=== PATIENT | male | born 1955 | race Caucasian/White ===

== ENCOUNTER → 2019-02-07 07:57 | Outpatient (CLI) | payer MEDICARE, SELFPAY ==
[2019-01-21 11:13] VITALS: BMI 34.5
[2019-02-07 08:39] VITALS: PULSE 104; PULSE 108; PULSE 110; PULSE 112; PULSE 115; PULSE 116; PULSE 70; PULSE 71; O2SAT 95; O2SAT 96; O2SAT 97; O2SAT 98
--- NOTE | 2019-02-08 08:18 | PCM.PSN.6M ---
PSN 6 Minute Walk Test - 6 Minute Walk Test 6 Minute Walk Test: 6 Minute Walk Test PSN:6-Minute Walk Test Start: 02/07/19 08:39 Freq: Status: Active Protocol: RESP.6MINW Document 02/07/19 08:39 SMB (Rec: 02/07/19 08:43 SMB [id number]) 6 Minute Walk Test Date Performed 02/07/19 Time Performed 08:26 Height 5 ft 9 in Weight: 122.47 kg Weight in Pounds 270.[address]: Andrea Valderrama Assistive device used: None Pre-test Oxygen Delivery Method Room Air Pulse Ox (%) 96 Pulse Rate (60-100 beats/min) 71 Dyspnea Jose Scale (0-10) 0 Exertion Jose Scale (6-20) 11 1st minute Oxygen Delivery Method Room Air Pulse Ox (%) 95 Pulse Rate (60-100 beats/min) 104 H 2nd minute Oxygen Delivery Method Room Air Pulse Ox (%) 95 Pulse Rate (60-100 beats/min) 108 H 3rd minute Oxygen Delivery Method Room Air Pulse Ox (%) 95 Pulse Rate (60-100 beats/min) 112 H 4th minute Oxygen Delivery Method Room Air Pulse Ox (%) 96 Pulse Rate (60-100 beats/min) 116 H 5th minute Oxygen Delivery Method Room Air Pulse Ox (%) 97 Pulse Rate (60-100 beats/min) 110 H 6th minute Oxygen Delivery Method Room Air Pulse Ox (%) 98 Pulse Rate (60-100 beats/min) 115 H Post-test Oxygen Delivery Method Room Air Pulse Ox (%) 97 Pulse Rate (60-100 beats/min) 70 Dyspnea Jose Scale (0-10) 0.5 Exertion Jose Scale (6-20) 13 Full Laps Walked 16 Partial Lap, Number of Tiles Walked 11 Total Distance Walked (ft) 955 - Interpretation Interpretation: The patient was able to Rosana 955 feet over the course of 6 minutes on room air with no assistive devices or breaks. The patient did not have any significant desaturation, but did have tachycardia as high as 116 bpm. These findings are consistent with deconditioning. - Recommendations Recommendations: No supplemental oxygen is indicated at this time.
== END ==
LOC: PSN 07:58
PROVIDERS: Referring Provider Internal Medicine Critical Care Medicine; Visit Provider Internal Medicine Critical Care Medicine
DX: R09.02 Hypoxemia (principal)
CPT/HCPCS: 94618

== ENCOUNTER → 2019-02-10 20:43 | Outpatient (CLI) | payer MEDICARE, SELFPAY ==
[2019-01-21 11:13] VITALS: BMI 34.5
== END ==
LOC: SL 20:43
PROVIDERS: Referring Provider Internal Medicine Critical Care Medicine; Visit Provider Internal Medicine Critical Care Medicine
DX: G47.33 Obstructive sleep apnea (adult) (pediatric) (principal)
CPT/HCPCS: 95810

== ENCOUNTER → 2019-03-06 20:24 | Outpatient (CLI) | payer MEDICARE, SELFPAY ==
[2019-01-21 11:13] VITALS: BMI 34.5
== END ==
PROVIDERS: Referring Provider Nurse Practitioner Acute Care; Visit Provider Nurse Practitioner Acute Care
DX: G47.33 Obstructive sleep apnea (adult) (pediatric) (principal)
CPT/HCPCS: 95811

== ENCOUNTER → 2019-03-24 13:34 | Outpatient (CLI) | payer MEDICARE, SELFPAY ==
[2019-01-21 11:13] VITALS: BMI 34.5
== END ==
PROVIDERS: Referring Provider Nurse Practitioner Acute Care; Visit Provider Nurse Practitioner Acute Care
DX: Z46.89 Encounter for fitting and adjustment of other specified devices (principal)

== ENCOUNTER 2019-08-24 18:30 | Emergency (ER) | payer MEDICARE, SELFPAY ==
[2019-04-30 15:04] VITALS: BMI 38.5
[2019-08-24 18:30] VITALS: BP 158/93; PULSE 163; RESP 16; TEMP 36.6; O2SAT 95; BMI 36.9
--- NOTE | 2019-08-24 20:03 | ED.DCSUM_ITS ---
History of Present Illness Chief Complaint: Wound Check Informant: Patient Narrative: Patient underwent left total knee replacement at the [facility] 2 days ago. Because the patient has chronic skin issues a wound VAC was placed over the area. Patient states he was doing very well yesterday and was discharged to home. Today they note that the wound VAC is not working. He has had nothing suctioned out of the wound and the sponge is not tense. He states it has never been working since they were discharged. Patient now has blood from underneath the dressing from the wound VAC. Whenever he stands he gets blood dripping. We believe that the sponges are saturated and with the wound VAC not working and is not being evacuated. Patient does state he is at increased pain today, but then notes that he is only been taking 1 tab of oxycodone every 12 hours when he is actually prescribed 1-2 tabs every 6 hours. - Past Medical History (1) TIA (transient ischemic attack) Status: Chronic (2) Cryptogenic stroke Status: Chronic Comment: L frontal and L parietal lobes (3) Hypertension Status: Chronic (4) Hypothyroid Status: Chronic (5) JOSÉ LUIS (obstructive sleep apnea) Status: Chronic Past Medical History - Allergies and Home Meds Allergies/Adverse Reactions: Allergies Penicillins Allergy (Verified 08/20/19 11:16) Anaphylaxis Primary Care Physician: [facility],[place] [Primary Care Provider] - Prior records reviewed: Yes Surgical History: noncontributory Lives: With Family Smoking Status: Current some day smoker - Family History Maternal Family History: Reports: No pertinent history Paternal Family History: Reports: No pertinent history Review of Systems General: Denies: Chills, Fever Eyes: Denies: Visual changes - bilaterally ENT: Denies: Bilateral ear pain Cardiovascular: Denies: Chest pain Respiratory: Denies: Dyspnea Gastrointestinal: Denies: Abdominal pain, Nausea, Vomiting, Diarrhea Genitourinary: Denies: Dysuria Musculoskeletal: Reports: Extremity Pain Skin: Denies: Rash Neurological: Denies: Headache Physical Exam Vital Signs/Narrative: Vital Signs Temp Pulse Resp BP Pulse Ox 08/24/19 18:30 97.8 F 163 H 16 158/93 H 95 Inital Vital Signs reviewed: Yes General: Well nourished, Well developed Head: Normocephalic ENT: Moist mucous membranes Neck: Supple Cardiovascular: Regular rate, Regular rhythm Respiratory: No distress, CTA bilaterally Abdomen: Soft, Nontender Extremities: - - Wound VAC in place over the left anterior knee. The sponge measures approximately 4 cm wide by at least a foot in length. The sponge is not pulled tense and there is no suction from the wound VAC. Neurological: Alert Psychological: Normal affect Diagnostic/Tx/Re-eval - Medical Decision Making When the power button on the wound VAC is pressed there is an alarm stating that it needs to be plugged in. Family states they were not provided with a plug for the VAC. There is an area where blood has seeped down underneath the dressing and will drain over the left anterior joaquin when the patient is upright. I was able to speak with the patient's orthopedic surgeon from the [place]. He asked the patient to follow-up in the Ortho general clinic at 945 tomorrow morning. They will replace the wound VAC and ensure it is working at that time. In the meantime we are to place ABD pads and wrap his leg with an Amadeo wrap. Patient is comfortable with this plan. ED Disposition - Plan for ED Patient: Disposition: Home or Assisted Living Diagnosis: Postoperative bleeding from incision Instructions: POST OP WOUND CHECK, Bleeding Referrals: [facility] [Primary Care Provider] - Additional Instructions: Follow-up with the ortho general clinic at 9:45 tomorrow morning. They will replace your wound vac and ensure it is working.
[2019-08-24 20:04] VITALS: PULSE 78
--- NOTE | 2019-08-24 21:36 | ED.RN ---
PATIENT AT NURSES STATION. RN ASKS IF PATIENT NEEDED ANY HELP. PATIENT REQUEST D/C PAPERS THAT ARE UP AND READY TO GO. RN CHECKS FOR ADDITIONAL ORDERS NOTHING, [facility] ANOTHER RN STOPS PATIENT AND INFORMS THEM THAT DR. JOHNSON WANTS HIS LEG TO BE WRAPPED TO HOLD OVER FOR APPOINTMENT TOMORROW. PATIENT STATES I HAVE BEEN HERE FOR 5 HOURS AND I WANT TO GO HOME. PATIENT PROCEEDS TO WALK OUT OF ER.
== END 2019-08-24 21:15 | disposition home or self-care (01) ==
PROVIDERS: Emergency Provider Emergency Medicine
DX: L76.22 Postprocedural hemorrhage of skin and subcutaneous tissue following other procedure (principal); I10 Essential (primary) hypertension; E03.9 Hypothyroidism, unspecified; G47.33 Obstructive sleep apnea (adult) (pediatric); F17.200 Nicotine dependence, unspecified, uncomplicated; Z88.0 Allergy status to penicillin; Z79.82 Long term (current) use of aspirin; Z79.899 Other long term (current) drug therapy; Z86.73 Personal history of transient ischemic attack (TIA), and cerebral infarction without residual deficits; Z96.652 Presence of left artificial knee joint
CPT/HCPCS: 99282

== ENCOUNTER 2021-02-04 07:54 | Day surgery (SDC) | payer OTHER, MEDICARE, SELFPAY ==
[2020-12-30 10:14] VITALS: BMI 36.9
[2021-02-04 08:20] VITALS: BP 152/85; PULSE 64; RESP 20; TEMP 36.8; O2SAT 99; BMI 38.9
[2021-02-04] MEDS: Lactated Ringers 1,000 ML 100 ML IV (08:20)
--- NOTE | 2021-02-04 08:46 | PCM.HP.BLA ---
History and Physical Date of Admission: 02/04/21 Intake Vital Signs 12/30/20 10:11 12/30/20 10:14 Height 5 ft 9 in Weight: 262 lb BMI 38.7 36.9 BP 141/103 H Blood Pressure Location Rt brachial Position Sitting Respiration 18 Intake Visit Reasons: CSCOPE Chief Complaint: c-scope [employer] Intern Required: No Is patient in pain?: No Allergies Penicillins Allergy (Verified 12/30/20 10:12) Anaphylaxis Medications amlodipine 5 mg PO DAILY 08/02/15 [History Confirmed 12/30/20] atenolol 50 mg PO DAILY 08/02/15 [History Confirmed 12/30/20] levothyroxine 150 mcg PO DAILY 08/02/15 [History Confirmed 12/30/20] aspirin 81 mg PO DAILY@0800 tab.chew 02/02/16 [Rx Confirmed 12/30/20] losartan 50 mg tablet 50 mg PO DAILY 12/30/20 [History Confirmed 12/30/20] potassium chloride 20 mEq tablet,extended release 20 meq PO TID tab 12/30/20 [History Confirmed 12/30/20] PFSH Medical History Acquired cardiac septal defect Aphasia Cryptogenic stroke Hypertension Hypokalemia Hypothyroid Ichthyosis Noncompliance with medications Obesity TIA (transient ischemic attack) Uncontrolled nonfamilial obstructive sleep apnea Surgical History Status post right knee replacement Social History Smoking Status: Current some day smoker Tobacco: How many years used: 15 how long ago did patient quit smokin, 2ppd second hand exposure: Yes HPI HPI HPI: ALIA PUCKETT, is a 65 M who presents to the office today for colonoscopy. The patient had his last colonoscopy in 2017. At that time the patient had a colon polyp and a poor prep and was recommended to repeat colonoscopy in 1 year. The patient never had that repeat colonoscopy. Patient denies any abdominal pain or blood in his stool. He has no family history of colon cancer. ROS General General: Yes weight change; No appetite, fatigue, colon cancer, breast cancer or weakness HEENT HEENT: No difficulty swallowing, eye injury, eye surgery, swollen glands or hoarseness Endo Endocrine: No thyroid disease, diabetes mellitus, thyroid cancer, Hair loss, heat intolerance or cold intolerance Skin Skin: No rash or changing moles Breast Breast: No left breast lump, right breast lump, nipple discharge, breast pain, abnormal mammogram, abnormal US or breast enlargement Musc Musculoskeletal: No back problems, arthritis, rheumatoid arthritis, gout or joint pain Cardio Cardiovascular: Yes high blood pressure; No murmur, pacemaker, heart disease, atrial fibrillation, heart attack, heart stent, palpitations, shortness of breat with exertion or chest pain Psych Psychiatric: No depression, anxiety or hearing voices Resp Respiratory: No shortness of breath, Yes sleep apnea, No cough, No COPD, No asthma, No emphysema and No wheezing Gastro Gastrointestinal: No abdominal pain, No nausea or vomiting, No diarrhea, No constipation, No blood in stool, No acid reflux, No hemorrhoids, No ulcers, No gallbladder problem and No black,tarry stools Beny Hematologic: No blood thinners, No blood disorders, No bleeding, No anemia and No blood clots Neuro Neurologic: No system reviewed and no additional complaints, except as documented, No as per HPI, No abnormal gait, No abnormal hearing, No abnormal movements, No abnormal speech, No behavioral changes, No burning sensations, No confusion, No convulsions, No disequilibrium, No dizziness, No localized weakness, No frequent falls, No headache(s), No lack of coordination, No loss of vision, No memory loss, No numbness, No other visual disturbances, No radicular pain, No restless legs, No sensory deficit, No syncope, No tingling, No tremor(s), No weakness and No other Exam Const General: cooperative Orientation: alert and oriented x3 HENMI Head: normal to inspection Neck Neck: normal visual inspection and full ROM Chest Chest palpation & inspection: normal inspection of the chest Resp Effort & Inspection: normal respiratory effort Auscultation: clear to auscultation bilaterally Cardio Rate: regular rate Rhythm: regular rhythm GI Inspection: non-distended Palpation: soft and nontender Skin General: no rashes or lesions noted Neuro General: patient alert and patient oriented x3 Extrem General: full ROM Psych Appearance: grossly normal Mental Status: mental status grossly normal Assessment and Plan Assessment and Plan (1) History of colon polyps: Status: Acute Orders: Orders: Colonoscopy Today Plan - Dr. Nomi Padilla MD: Plan for surveillance colonoscopy. The [facility] I explained endoscopy in detail to the patient. I explained the risks including but not limited to stroke or heart attack with anesthesia, perforation of the GI tract, bleeding, infection. I explained that any of these could necessitate further emergency surgery. The patient understands and all questions were answered sufficiently. The patient wishes to proceed with procedure. Nomi Padilla MD Pager: [facility] [address] [place] [address] [place] [address] Office: I have re-examined the patient. There are no clinical changes since date of exam.
[2021-02-04 09:15] VITALS: BP 123/89; BP 152/85; PULSE 69; RESP 16; TEMP 36.9; O2SAT 97
--- NOTE | 2021-02-04 09:15 | COLBX_PTH ---
PATIENT: ALIA PUCKETT LOC: EN U#:[id number] AGE/SX: 65/M ROOM: RE02/04/[address]: Dr. Nomi Padilla MD : 1955 BED: DIS: 02/04/2021 SPEC #: [id number] RECD: 02/04/21 10:02 STATUS: ERIN MAGUI #: [id number] FAMILIA: 02/04/21 09:[address]: Nomi Padilla DEPT: SURGICAL PATHOLOGY RECD BY: Mi Guillory ENTERED: 02/04/21 13:30 SP TYPE: COLON BX OTHR DR: [facility] Tissues: Transverse colon Procedures: Surgery Specimen Level IV HEADER OPERATION: Colonoscopy (MAC) PRE-OP DIAGNOSIS: History of colon polyps TISSUE SUBMITTED: Biopsy of transverse colon polyps MICROSCOPIC DIAGNOSIS Transverse colon polyp, biopsy: Tubular adenoma. NIA:flip 02/07/2021 MICROSCOPIC DESCRIPTION Slides are reviewed. GROSS DESCRIPTION Received in fixative is one container labeled with the patient's name and designated biopsy of transverse colon polyp. The specimen consists of one irregular fragment of light davison soft tissue that measures 0.2 x 0.2 x 0.1 cm. The specimen is totally submitted in one cassette. / AM:flip 02/04/21 TC:1 CPT: 94963
--- NOTE | 2021-02-04 09:18 | OP.COLON_ITS ---
Patient Name: Casey Araujo Procedure Date: 02/04/2021 8:52 AM Date of : 1955 Age: 65 Procedure: Colonoscopy Indications: High risk colon cancer surveillance: Personal history of colonic polyps Providers: Nomi Padilla MD Referring MD: Nomi Padilla MD Medicines: Monitored Anesthesia Care Patient Profile: This is a 65 year old male. Refer to note in patient chart for documentation of history and physical. Last Colonoscopy: several years ago. Complications: No immediate complications. Procedure: Pre-Anesthesia Assessment: - Prior to the procedure, a History and Physical was performed, and patient medications and allergies were reviewed. The patient's tolerance of previous anesthesia was also reviewed. The risks and benefits of the procedure and the sedation options and risks were discussed with the patient. All questions were answered, and informed consent was obtained. Prior Anticoagulants: The patient has taken no previous anticoagulant or antiplatelet agents. After reviewing the risks and benefits, the patient was deemed in satisfactory condition to undergo the procedure. After I obtained informed consent, the scope was passed under direct vision. Throughout the procedure, the patient's blood pressure, pulse, and oxygen saturations were monitored continuously. The colonoscope was introduced through the anus and advanced to the cecum, identified by appendiceal orifice and ileocecal valve. The colonoscopy was performed without difficulty. The patient tolerated the procedure well. The quality of the bowel preparation was good. Scope In: 9:01:51 AM Scope Withdrawal Time 0 hours 6 minutes 18 seconds Scope Out: 9:10:07 AM Total Procedure Duration Time 0 hours 8 minutes 16 seconds Findings: A polyp was found in the transverse colon. The polyp was removed with a cold biopsy forceps. Resection and retrieval were complete. The exam was otherwise without abnormality on direct and retroflexion views. Impression: - One polyp in the transverse colon, removed with a cold biopsy forceps. Resected and retrieved. - The examination was otherwise normal on direct and retroflexion views. Recommendation: - Discharge patient to home. - Resume previous diet. - Continue present medications. - Await pathology results. - Repeat colonoscopy in 5 years for surveillance based on pathology results. Procedure Code(s): --- Professional --- 74818, Colonoscopy, flexible; with biopsy, single or multiple Diagnosis Code(s): --- Professional --- Z86.010, Personal history of colonic polyps D12.3, Benign neoplasm of transverse colon (hepatic flexure or splenic flexure) CPT copyright 2017 [employer]. All rights reserved. The codes documented in this report are preliminary and upon helmet hat brim cutter review may be revised to meet current compliance requirements. Nomi Padilla MD 02/04/2021 9:17:51 AM This report has been signed electronically. Number of Addenda: 0 Note Initiated On: 02/04/2021 8:52 AM
--- NOTE | 2021-02-04 09:19 | OP.CCLET_ITS ---
02/04/2021 [facility] Re : Colonoscopy procedure for Casey [facility] This procedure was performed on Thursday, February 04, 2021. My impressions and recommendations are as follows: Impressions : - One polyp in the transverse colon, removed with a cold biopsy forceps. Resected and retrieved. - The examination was otherwise normal on direct and retroflexion views. Recommendations : - Discharge patient to home. - Resume previous diet. - Continue present medications. - Await pathology results. - Repeat colonoscopy in 5 years for surveillance based on pathology results. My findings are described in the full procedure note, which is enclosed. If I can be of further assistance, please feel free to contact me at Doctor phone number(s): , Work: . Sincerely, Nomi Padilla MD 02/04/2021 9:17:51 AM This report has been signed electronically.
[2021-02-04 09:20] VITALS: BP 119/90; BP 152/85; PULSE 70; RESP 16; O2SAT 97
[2021-02-04 09:25] VITALS: BP 129/98; BP 152/85; PULSE 68; RESP 16; O2SAT 96
[2021-02-04 09:30] VITALS: BP 122/99; BP 152/85; PULSE 64; RESP 16; TEMP 36.1; O2SAT 97
[2021-02-04 09:52] VITALS: BP 152/85
== END 2021-02-04 09:59 | disposition home or self-care (01) ==
LOC: EN 07:57 → AC 07:58
PROVIDERS: Anesthesiology; Referring Provider Surgery; Visit Provider Surgery
PROC: 0DJD8ZZ Inspection of Lower Intestinal Tract, Via Natural or Artificial Opening Endoscopic (ICD-10-PCS; CPT 45378; principal; 2021-02-04 09:10)
DX: Z12.11 Encounter for screening for malignant neoplasm of colon (principal); D12.3 Benign neoplasm of transverse colon; Z20.822 Contact with and (suspected) exposure to COVID-19; I10 Essential (primary) hypertension; E03.9 Hypothyroidism, unspecified; E66.9 Obesity, unspecified; Z91.14 Patient's other noncompliance with medication regimen; Z79.82 Long term (current) use of aspirin; Z79.899 Other long term (current) drug therapy; Z86.010 Personal history of colon polyps; Z86.73 Personal history of transient ischemic attack (TIA), and cerebral infarction without residual deficits; Z87.891 Personal history of nicotine dependence; Z96.651 Presence of right artificial knee joint
CPT/HCPCS: 45380; 87635; 88305; C9803; J7120; U0005; J2405; U0003

== ENCOUNTER 2023-11-12 00:54 | Emergency (ER) | payer OTHER, SELFPAY ==
[2023-11-12 00:55] VITALS: BP 174/101; PULSE 78; RESP 20; TEMP 36.1; O2SAT 95; BMI 42.6
[2023-11-12 00:57] VITALS: BP 174/101; PULSE 79; RESP 20; TEMP 36.1; O2SAT 93; O2SAT 95
--- NOTE | 2023-11-12 01:21 | RAD_ITS ---
EXAM: XR CHEST, 2 VIEWS CLINICAL INDICATION: dyspnea TECHNIQUE: Frontal and lateral views of the chest. COMPARISON: 04/13/2016. FINDINGS: LUNGS AND PLEURAL SPACES: Unremarkable. No consolidation or edema. No pneumothorax. No effusion. HEART: Unremarkable. Cardiac silhouette not enlarged. MEDIASTINUM: Central airways and mediastinal contour are unremarkable. BONES/JOINTS: Unremarkable. No acute fracture. SOFT TISSUES: Unremarkable. RAD/Chest PA and Lateral IMPRESSION: No acute cardiopulmonary abnormality. Electronically Signed: Almas Espinosa MD at 2:03 EDT ,
--- NOTE | 2023-11-12 01:21 | EKG12_ITS ---
Test Reason : SOB Blood Pressure : / mmHG Vent. Rate : 080 BPM Atrial Rate : 080 BPM P-R Int : 212 ms QRS Dur : 090 ms QT Int : 384 ms P-R-T Axes : 023 107 011 degrees QTc Int : 442 ms Sinus rhythm with 1st degree A-V block Rightward axis Low voltage QRS Nonspecific ST and T wave abnormality Abnormal ECG Confirmed by BUBBA MCCLELLAND, MIKE ([id number]), tube coverer FRANCIA SILVERIO ([id number]) on 11/13/2023 8:20:52 AM Referred By: Confirmed By:MIKE MAC MD
[2023-11-12 01:32] VITALS: PULSE 75; RESP 18
[2023-11-12] MEDS: Ipratropium/Albuterol Sulfate 3 ML AMPUL.NEB INHALATION (01:32)
[2023-11-12 01:34] LABS: Absolute Lymphocyte Count 2.85 X10^3/uL (0.83-4.51); Absolute Neutrophil Count 5.1 X10^3/uL (2.0-7.7); Basophil# 0.07 X10^3/uL; Basophil% 0.8 % (0-1); Eosinophil# 0.14 X10^3/uL; Eosinophils% 1.6 % (0-5); Hematocrit 51.8 % (40-54); Hemoglobin 16.8 g/dL (13.0-16.5); Lymphocyte # 2.85 X10^3/ul (0.83-4.51); Mean Corp Hgb Conc 32.4 g/dL (32-36); Mean Corpuscular Hgb 28.7 pg (27.0-32.0); Mean Corpuscular Volume 88.5 fL (80-94); Mean Platelet Vol. 9.8 fl (6.2-12.0); Monocyte# 0.77 X10^3/uL; Monocyte% 8.6 % (0-10); NRBC Flagged by Analyzer 0 % (0-5); Neutrophil # 5.06 X10^3/uL (2.7-7.7); Neutrophil % 56.8 % (47-70); Platelet Count 175 K/mm3 (150-450); RBC Distribution Width CV 13.7 % (11.6-14.6); RBC Distribution Width SD 44.5 fl (35.1-43.9); Red Blood Count 5.85 M/mm3 (4.6-6.2); White Blood Count 8.9 K/mm3 (4.4-11.0)
[2023-11-12 01:59] LABS: Anion Gap 9 (5-15); BUN 16 mg/dL (7-18); BUN/Creat Ratio 7.9 RATIO (10-20); Chloride 106 mmol/L (98-107); Creatinine, Serum 2.02 mg/dL (0.70-1.30); EST Glomerular Filtration Rate 35 mL/min (>60); Est Glom Filt Rate - Afr Amer 42 mL/min (>60); Estimated Creatinine Clearance 46.92 ml/min; Glucose 124 mg/dL (74-106); Magnesium 2.1 mg/dL (1.6-2.6); Potassium 4.3 mmol/L (3.5-5.1); Sodium Level 140 mmol/L (136-145); Troponin-I HS 11 pg/mL (3.0-78.0)
[2023-11-12 02:05] LABS: BNP,B-Type NATRIURETIC PEPTIDE 16.1 pg/mL (0-100)
[2023-11-12 02:57] VITALS: BP 143/103; PULSE 67; RESP 16; TEMP 36.2; O2SAT 95
[2023-11-12 03:33] LABS: Troponin-I HS 11 pg/mL (3.0-78.0)
[2023-11-12 03:53] VITALS: BP 121/95; PULSE 59; RESP 14; O2SAT 95
--- NOTE | 2023-11-12 04:15 | EDS_ITS ---
HPI History of Present Illness Chief Complaint: Shortness of Breath Informant: patient Narrative Narrative: Patient is a 68-year-old male with past medical history of hypertension and hypothyroidism as well as obstructive sleep apnea. He states that he is feeling slightly short of breath prior to bedtime and then placed his CPAP on and lie down to try to go to sleep. He states that despite doing this he did not have any improvement of his shortness of breath. He states he was concerned that this could be cardiac or he has potential infection as a cause of his symptoms and therefore he comes in for evaluation [facility] Medical History (Updated 11/13/23 @ 03:[address] Omar Nicholas, DO) Acquired cardiac septal defect Alcohol use Aphasia Arthritis Cancer Cardiology follow-up encounter CPAP (continuous positive airway pressure) dependence Cryptogenic stroke Former smoker Hepatitis Hypertension Hypokalemia Hypothyroid Ichthyosis Noncompliance with medications Obesity Sleep apnea Stroke/cerebrovascular accident TIA (transient ischemic attack) Uncontrolled nonfamilial obstructive sleep apnea Wears glasses Home Medications amlodipine 5 mg tablet 5 mg PO DAILY 08/02/15 [History Last Taken 02/04/21 06:30] atenolol 50 mg tablet 50 mg PO DAILY 08/02/15 [History Last Taken 02/04/21 06:30] levothyroxine 75 mcg tablet 150 mcg PO DAILY 08/02/15 [History Last Taken 02/04/21 06:30] aspirin 81 mg chewable tablet 81 mg PO DAILY@0800 02/02/16 [Rx Last Taken Unknown] losartan 50 mg tablet 50 mg PO DAILY 12/30/20 [History Last Taken 02/04/21 06:30] potassium chloride 20 mEq tablet,extended release 20 meq PO TID 12/30/20 [History Last Taken 02/04/21 06:30] Allergy/AdvReac Type Severity Reaction Status Date / Time Penicillins Allergy Anaphylaxis Verified 02/04/21 08:23 Surgical History History of cardiac catheterization History of heart surgery Status post right knee replacement Social History Smoking Status: Former smoker Tobacco: How many years used: 15 how long ago did patient quit smokin, 2ppd second hand exposure: Yes ROS ROS ED Constitutional Constitutional ED: Denies chills or fever(s) Eyes Eyes: Denies change in vision ENT ENT ED: Denies rhinorrhea or sore throat Cardiovascular Cardiovascular: Denies chest pain, palpitations or racing heartbeat Respiratory/Chest Respiratory/Chest: Reports cough and dyspnea Gastrointestinal Gastrointestinal: Denies abdominal pain, diarrhea, nausea or vomiting Genitourinary Genitourinary ED: Denies dysuria Musculoskeletal Musculoskeletal: Denies myalgias Integumentary Denies rash Neurologic Neurologic: Denies headache(s) Hematologic/Lymphatic Hematologic/Lymphatic: Denies easy bleeding or easy bruising EXAM Physical Exam Const Vital Signs: 11/12/23 03:53 11/12/23 04:36 Temperature 98.1 F Pulse Rate 59 L 60 Respiratory Rate 14 16 Blood Pressure 121/95 H 139/90 H Blood Pressure Mean 103 106 Pulse Ox 95 96 Oxygen Delivery Method Room Air Positive well nourished, well developed and obese General Appearance ED: well developed; Negative for pallor Nutritional Appearance: obese HEENT Reports moist mucous membranes HEENT Narrative: No tongue or lip swelling no oral lesions no airway edema or compromise No signs of infection noted in the posterior pharynx Eyes PERRL and EOMs intact bilaterally General Eye ED: Negative for pale conjunctiva or scleral icterus Neck supple and no JVD Neck Narrative: No nuchal rigidity or meningeal signs noted Chest Wall palpation of chest normal Chest Narrative: No bony deformity or crepitance Resp normal respiratory effort Resp Narrative: Breath sounds are diminished throughout with faint expiratory wheeze in the bilateral bases but overall no nasal flaring retractions tachypnea or accessory muscle use Cardio regular rate and regular rhythm Rate: other Other Details: Heart is regular rate and rhythm Radial and carotid pulses are equal and symmetric GI normal to inspection, nondistended, normoactive bowel sounds, non-tender, non- distended and no masses GI Narrative: No voluntary guarding or fluid wave noted No pulsatile mass Auscultation: normoactive bowel sounds Palpation: soft Extremity Extremity Narrative: Trace pitting edema to the bilateral lower extremities that is equal and symmetric Negative Homans' sign bilaterally Neuro oriented x3, CN's II-XII intact bilaterally and no sensory deficits noted Sensorium / Orientation: alert Motor Exam: strength 5/5 throughout Psych mental status grossly normal Skin Skin Narrative: Chronic skin changes consistent with ichthyosis without secondary changes to suggest infection General Skin Exam: Negative for pallor MDM MDM MDM Narrative Medical decision making narrative: Patient arrived to the ER hypertensive but otherwise with stable vitals satting in the mid 90s on room air. With his report of shortness of breath differential diagnosis is for acute coronary syndrome versus congestive heart failure versus acute blood loss anemia versus pneumonia or pneumothorax. Secondary to his basic blood work was obtained as well as a chest x-ray. Lab work showed stable H&H and creatinine that was slightly elevated but near patient's baseline. His initial and delta troponin were normal at 11 going against acute coronary syndrome and his proBNP is normal at 16 which correlates with this chest x-ray that revealed no acute lung pathology. The patient's blood pressure spontaneously improved and he reported improvement of his symptoms with this. Therefore his symptoms are most likely related to accelerated hypertension but as the blood pressure has spontaneously improved and he is in no acute distress and not requiring supplemental oxygen there is no need for further workup or admission and he is otherwise safe for discharge History & Record Review Discussion w/independent historian: Patient Lab Data Attestation: I reviewed the patient's lab results. Labs: Laboratory Results - last 24 hr 11/12/23 11/12/23 01:03 02:58 WBC 8.9 RBC 5.85 Hgb 16.8 H Hct 51.8 MCV 88.5 MCH 28.7 MCHC 32.4 RDW Std Deviation 44.5 H RDW Coeff of Mahesh 13.7 Plt Count 175 MPV 9.8 Immature Gran % (Auto) 0.200 Neut % (Auto) 56.8 Lymph % (Auto) 32.0 Summers % (Auto) 8.6 Eos % (Auto) 1.6 Baso % (Auto) 0.8 Absolute Neuts (auto) 5.1 Absolute Lymphs (auto) 2.85 Nucleated RBC % 0 Sodium 140 Potassium 4.3 Chloride 106 Carbon Dioxide 25.0 Anion Gap 9 BUN 16 Creatinine 2.02 H Estim Creat Clear Calc 46.92 Est GFR (MDRD) Af Amer 42 L Est GFR (MDRD) Non-Af 35 L BUN/Creatinine Ratio 7.9 L Glucose 124 H Calcium 9.0 Magnesium 2.1 Troponin I High Sens 11 11 B-Natriuretic Peptide 16.1 Radiography Diagnostic Testing: Clinical Impression(s) from Imaging Studies Chest X-Ray 11/12/23 01:21 IMPRESSION: No acute cardiopulmonary abnormality. Electronically Signed: Almas Espinosa MD at 2:03 EDT , Chest x-ray as interpreted by the emergency medicine physician reveals no acute infiltrate pneumothorax or pleural effusion Discharge Plan Triage Chief Complaint: Shortness of Breath ED Provider: Omar Nicholas Dx/Rx/DC Orders Clinical Impression: Accelerated hypertension, Dyspnea, JOSÉ LUIS (obstructive sleep apnea) Instructions: ED Dyspnea, ED Hypertension, Established Prescriptions: No Action potassium chloride 20 mEq tablet extended release 20 meq PO TID losartan 50 mg tablet 50 mg PO DAILY amlodipine 5 MG tablet 5 mg PO DAILY Patient Comments: Blood pressure levothyroxine 75 MCG tablet 150 mcg PO DAILY Patient Comments: Thyroid hormone replacement atenolol 50 MG tablet 50 mg PO DAILY Patient Comments: Heart aspirin 81 MG tablet,chewable 81 mg PO DAILY@0800 0RF Patient Comments: Blood thinner for heart health [facility] Provider[facility] - Disposition Disposition: Home, Self Care Discharge Date/Time: 11/12/23 04:42
[2023-11-12 04:36] VITALS: BP 139/90; PULSE 60; RESP 16; TEMP 36.7; O2SAT 96
== END 2023-11-12 04:42 | disposition home or self-care (01) ==
PROVIDERS: Emergency Provider Emergency Medicine; Visit Provider Emergency Medicine
DX: I10 Essential (primary) hypertension (principal); R06.09 Other forms of dyspnea; E03.9 Hypothyroidism, unspecified; G47.33 Obstructive sleep apnea (adult) (pediatric); Z79.82 Long term (current) use of aspirin; Z79.890 Hormone replacement therapy; Z79.899 Other long term (current) drug therapy; Z87.891 Personal history of nicotine dependence; Z86.73 Personal history of transient ischemic attack (TIA), and cerebral infarction without residual deficits
CPT/HCPCS: 71046; 80048; 83735; 83880; 84484; 85025; 93005; 94640; 99282; A4216

== ENCOUNTER 2025-04-08 21:07 | Emergency (ER) | payer OTHER, SELFPAY ==
[2025-04-08] VITALS (11 sets, daily range): BP systolic 154–168; BP diastolic 90–96; PULSE 70–83; RESP 12–19; TEMP 36.6–36.7; O2SAT 91–100; BMI 41.8
--- NOTE | 2025-04-08 21:10 | CT_ITS ---
PROCEDURE: STROKE BRAIN/HEAD WITHOUT CONT 04/08/2025 REASON FOR EXAM: NEURO DEFICIT, ACUTE, STROKE SUSPECTED TECHNIQUE: Procedure Code: CTBR.ST Modality: CT Procedure: STROKE BRAIN/HEAD WITHOUT CONT Coronal and Sagittal reconstruction series were provided. One or more dose reduction techniques were used (e.g., Automated exposure control, adjustment of the mA and/or kV according to patient size, use of iterative reconstruction technique. RADIATION DOSE SUMMARY: DLP: 833 mGycm COMPARISON: None FINDINGS: Left thalamic/basal ganglia intraparenchymal hemorrhage measuring proximally 2.1 x 1.8 cm without significant mass effect. No midline shift. There is left lateral and occipital horn intraventricular hemorrhage. No obstructive hydrocephalus. No acute, large territorial infarction. There is code-be-hgoogica chronic microvascular ischemic changes and wsal-ma-georsqvr parenchymal volume loss. No acute, depressed calvarial fractures. No large scalp hematomas. The paranasal sinuses are clear. Right mastoid air cell fluid may reflect mastoiditis. CT/STROKE Brain/Head without Cont IMPRESSION: Left thalamic/basal ganglia intraparenchymal hemorrhage measuring proximally 2. 1 x 1.8 cm without significant mass effect. No midline shift. There is left lateral and occipital horn intraventricular hemor rhage. No obstructive hydrocephalus. Dr. Allen was notified by Tejinder Meyers at 9:30 pm EST on 04/08/2025. Reading [id number]
--- NOTE | 2025-04-08 21:13 | ED.VIS.STROK ---
HPI History of Present Illness Chief Complaint: Stroke Alert Detail of Chief Complaint: Slurred speech and right sided weakness Informant: patient and EMS Narrative Narrative: Patient presents to the emergency department with concern for possible stroke. He was noted by family to develop slurred speech about 8:30 PM. EMS was called. He denies chest pain. He tells me has had prior strokes with no remaining deficits. He tells me he is on Eliquis. He has had heart surgery with valve replacement in the past. He has no heart stents. [facility] Medical History (Updated 04/08/25 @ 21:[address] Jessi Allen, DO) Wears glasses Cancer Alcohol use Arthritis Hepatitis Stroke/cerebrovascular accident Former smoker CPAP (continuous positive airway pressure) dependence Sleep apnea Cardiology follow-up encounter Noncompliance with medications Hypokalemia TIA (transient ischemic attack) Hypothyroid Ichthyosis Aphasia Acquired cardiac septal defect Uncontrolled nonfamilial obstructive sleep apnea Cryptogenic stroke Obesity Hypertension Home Medications ?Medication ?Instructions ?Recorded ?Last Taken ?Type amlodipine 5 mg tablet 5 mg PO DAILY 08/02/15 02/04/21 06:30 History atenolol 50 mg tablet 50 mg PO DAILY 08/02/15 02/04/21 06:30 History levothyroxine 75 mcg tablet 150 mcg PO DAILY 08/02/15 02/04/21 06:30 History aspirin 81 mg chewable tablet 81 mg PO DAILY@0800 02/02/16 Unknown Rx losartan 50 mg tablet 50 mg PO DAILY 12/30/20 02/04/21 06:30 History potassium chloride 20 mEq 20 meq PO TID 12/30/20 02/04/21 06:30 History tablet,extended release Allergy/AdvReac Type Severity Reaction Status Date / Time Penicillins Allergy Anaphylaxis Verified 02/04/21 08:23 Surgical History History of heart surgery History of cardiac catheterization Status post right knee replacement Social History Smoking Status: Former smoker Tobacco: How many years used: 15 how long ago did patient quit smokin, 2ppd second hand exposure: Yes ROS ROS ED Review of Systems ROS Unobtainable: other Constitutional Constitutional ED: Reports lethargy; Denies chills, fever(s), sweats or weight loss Eyes Eyes: Denies blurry vision, change in vision or diplopia ENT ENT ED: Denies rhinorrhea or sore throat Cardiovascular Cardiovascular: Denies chest pain, orthopnea or racing heartbeat Respiratory/Chest Respiratory/Chest: Denies cough, dyspnea, dyspnea on exertion, orthopnea or sputum Gastrointestinal Gastrointestinal: Denies abdominal pain, diarrhea, nausea or vomiting Genitourinary Genitourinary ED: Denies dysuria, hematuria or urinary frequency Musculoskeletal Musculoskeletal: Denies arthralgias, back pain, myalgias or neck pain Integumentary Denies abscess, Abrasions or rash Neurologic Neurologic: Reports other Details: Right-sided weakness, slurred speech ; Denies headache(s) or weakness Psychiatric Psychiatric: Denies anxiety, depression or suicidal thoughts Endocrine Endocrinology: Denies polydipsia, polyphagia or polyuria Hematologic/Lymphatic Hematologic/Lymphatic: Denies easy bleeding, easy bruising or lymphadenopathy Allergic/Immunologic Allergic/Immunologic ED: Denies mouth swelling, tongue swelling or urticaria EXAM Physical Exam Const Vital Signs: 04/08/25 21:08 04/08/25 21:10 04/08/25 21:25 Temperature 98 F Temperature Source Temporal Pulse Rate 82 82 Respiratory Rate 12 17 Blood Pressure 156/96 H 168/96 H Blood Pressure Mean 116 120 Pulse Ox 96 97 Oxygen Delivery Method Room Air Oxygen Flow Rate (L/min) 04/08/25 21:32 04/08/25 21:32 04/08/25 21:40 Temperature Temperature Source Pulse Rate 83 73 Respiratory Rate 17 16 Blood Pressure 168/96 H 160/90 H Blood Pressure Mean 120 113 Pulse Ox 97 91 Oxygen Delivery Method Room Air Room Air Oxygen Flow Rate (L/min) 04/08/25 21:41 04/08/25 21:55 Temperature Temperature Source Pulse Rate 71 Respiratory Rate Blood Pressure 154/93 H Blood Pressure Mean 113 Pulse Ox 98 100 Oxygen Delivery Method Nasal Cannula Nasal Cannula Oxygen Flow Rate (L/min) 2 2 Positive well nourished and well developed General Appearance ED: well developed and NAD HEENT Reports TM's clear and moist mucous membranes normocephalic and atraumatic; Negative for trauma or tenderness Tympanic Membrane ED: Yes TM's clear Eyes PERRL and EOMs intact bilaterally General Eye ED: Negative for pale conjunctiva or scleral icterus Neck no lymphadenopathy, supple and no JVD General: Negative for tenderness Chest Wall inspection of chest normal and palpation of chest normal Chest: Negative for tenderness Resp normal respiratory effort and clear to auscultation bilaterally Effort and Inspection: Negative for respiratory distress or pain with movement Auscultation: Negative for rhonchi, wheezes or diminished lung sounds Cardio regular rate, regular rhythm, S1 normal heart sound, S2 normal heart sound and no murmurs Peripheral Pulses: pulses 2+ throughout GI normal to inspection, nondistended, normoactive bowel sounds, soft to palpation, non-tender, non-distended and no masses Back/Spine no CVA tenderness and no thoracic nor lumbar tenderness Extremity normal to inspection General Extremety ED: Negative for edema General Extremity: Negative for edema Neuro oriented x3, CN's II-XII intact bilaterally, no sensory deficits noted and gait normal Neuro Narrative: Patient with dysarthria/slurred speech and right arm weakness. No noted facial droop. NIH stroke scale was a 4. Sensorium / Orientation: awake, alert, oriented to person, oriented to place and oriented to time Motor Exam: strength 5/5 throughout and strength abnormal Psych mental status grossly normal Skin no rashes or lesions noted and no wounds MDM MDM MDM Narrative Medical decision making narrative: Patient presents to the emergency department with concern for stroke. Stroke team was called. He tells me he is on Eliquis. Initial cursory NIH stroke scale was a 4 based on slurred speech and right arm weakness. Patient immediately went to CT scanner where he was noted to have a left-sided intraparenchymal hemorrhage with a ventricular component. Patient had an episode of emesis and was given Zofran 4 mg IV. Noted to be mildly hypertensive with systolic of 156/96 and was ordered labetalol. I will order Kcentra to reverse his Eliquis as patient tells me he took it today. Discussed with [facility] transfer line and he was accepted to their facility where he had his heart valve replacement a year ago. Patient will be flown via helicopter. Lab Data Attestation: I reviewed the patient's lab results. Labs: Laboratory Results - last 24 hr 04/08/25 21:34 WBC 10.7 RBC 5.94 Hgb 13.7 Hct 45.2 MCV 76.1 L MCH 23.1 L MCHC 30.3 L RDW Std Deviation 44.6 H RDW Coeff of Mahesh 16.8 H Plt Count 202 MPV 9.6 Immature Gran % (Auto) 0.500 Neut % (Auto) 59.1 Lymph % (Auto) 29.5 Caroline % (Auto) 8.5 Eos % (Auto) 1.9 Baso % (Auto) 0.5 Absolute Neuts (auto) 6.3 Absolute Lymphs (auto) 3.14 Nucleated RBC % 0 Radiography Diagnostic Testing: Clinical Impression(s) from Imaging Studies Brain CT 04/08/25 21:10 IMPRESSION: Left thalamic/basal ganglia intraparenchymal hemorrhage measuring proximally 2.1 x 1.8 cm without significant mass effect. No midline shift. There is left lateral and occipital horn intraventricular hemorrhage. No obstructive hydrocephalus. Dr. Allen was notified by Tejinder Meyers at 9:30 pm EST on 04/08/2025. Reading [id number] Head/Neck CTA 04/08/25 21:15 IMPRESSION: No intracranial or cervical large vessel arterial occlusion, significant stenosis, aneurysm or dissection. Redemonstrated acute intraparenchymal hemorrhage within the left basal ganglia with small amount of intraventricular extension to the left lateral ventricle. No active arterial contrast extravasation. Reading Location: [facility] Critical Care Time Critical care time (excluding procedures): 30-74 minutes, 75-104 minutes, Including time spent:, Discussing w/Patient &/or Family/Manager Of School, Discussing w/Consultants, Arranging Admission or Transfer, Performing Direct Patient Care at Bedside and - (30 minutes) Discharge Plan Triage Chief Complaint: Stroke Alert ED Provider: Jessi Allen Dx/Rx/DC Orders Clinical Impression: Intracranial hemorrhage, Hypertension Prescriptions: No Action potassium chloride 20 mEq tablet extended release 20 meq PO TID losartan 50 mg tablet 50 mg PO DAILY amlodipine 5 MG tablet 5 mg PO DAILY Patient Comments: Blood pressure levothyroxine 75 MCG tablet 150 mcg PO DAILY Patient Comments: Thyroid hormone replacement atenolol 50 MG tablet 50 mg PO DAILY Patient Comments: Heart aspirin 81 MG tablet,chewable 81 mg PO DAILY@0800 0RF Patient Comments: Blood thinner for heart health [facility] Provider] - Print Language: [place] L[place]an Disposition Disposition: DC/Tx to Another Type of HCF
--- NOTE | 2025-04-08 21:15 | CT_ITS ---
PROCEDURE: STROKE CTA HEAD AND NECK W/CON 04/08/2025 REASON FOR EXAM: NEURO DEFICIT, ACUTE, STROKE SUSPECTED TECHNIQUE: Procedure Code: CTCTA.ST.HN Modality: CT Procedure: STROKE CTA HEAD AND NECK W/CON Multiplanar Sagittal and Coronal images were obtained. 3D/MIP postprocessing was performed. CONTRAST: Isovue 370 VOLUME: 96 mL One or more dose reduction techniques were used (e.g., Automated exposure control, adjustment of the mA and/or kV according to patient size, use of iterative reconstruction technique). RADIATION DOSE SUMMARY: DLP: 937.19 mGycm COMPARISON: Concomitant noncontrast CT head same day 04/08/2025. FINDINGS: CTA HEAD: Widely patent major intracranial arterial vasculature. No large vessel occlusion, flow-limiting stenosis, saccular aneurysm, or vascular malformation identified. Dural venous sinuses appear patent. CTA NECK: Bilateral cervical carotid and vertebral arteries are patent without stenosis. Dominant left vertebral artery supplies the basilar and originates directly from the aortic arch. Relatively hypoplastic nondominant right vertebral artery terminates at PICA branches, an anatomic variant. No aneurysm or dissection. NON-ANGIOGRAPHIC FINDINGS: Redemonstrated intraparenchymal hemorrhage epicentered within the left thalamic nucleus, with small amount of intraventricular extension into the posterior left lateral ventricle. Associated minimal localized mass-effect, with no midline shift, or evidence of ventricular entrapment or developing hydrocephalus. No extra-axial collection. Mild multilevel degenerative changes of the spine. Sternotomy wires. CT/STROKE CTA Head AND Neck W/Con IMPRESSION: No intracranial or cervical large vessel arterial occlusion, significant stenos is, aneurysm or dissection. Redemonstrated acute intraparenchymal hemorrhage within the left basal ganglia with small amount of intraventricular extension to the left lateral ventricle. No active arterial contrast extravasation. Reading Location: [facility]
[2025-04-08 21:42] LABS: Hematocrit 45.2 % (40-54); Hemoglobin 13.7 g/dL (13.0-16.5); Immature Granulocytes Count 0.050 X10^3/uL (0.0-0.0); Mean Corp Hgb Conc 30.3 g/dL (32-36); Mean Corpuscular Volume 76.1 fL (80-94); Mean Platelet Vol. 9.6 fl (6.2-12.0); NRBC Flagged by Analyzer 0 % (0-5); Platelet Count 202 K/mm3 (150-450); RBC Distribution Width CV 16.8 % (11.6-14.6); RBC Distribution Width SD 44.6 fl (35.1-43.9); Red Blood Count 5.94 M/mm3 (4.6-6.2); White Blood Count 10.7 K/mm3 (4.4-11.0)
[2025-04-08 21:54] LABS: Prothrombin Time (Protime)PT. 14.7 SECONDS (11.7-14.9)
[2025-04-08 21:59] LABS: Partial Thromboplast Time 20.6 Seconds (24.1-36.2)
[2025-04-08 22:04] LABS: Anion Gap 14 (5-15); BUN 21 mg/dL (4-19); BUN/Creat Ratio 10.5 RATIO (10-20); Calcium,Total 9.4 mg/dL (7.6-11.0); Carbon Dioxide 17.8 mmol/L (21.0-32.0); Chloride 101 mmol/L (98-108); Estimated Creatinine Clearance 46.96 ml/min (50-250); Glucose 122 mg/dL (70-99); Potassium 4.8 mmol/L (3.3-5.1); Troponin T High Sensitivity 21 ng/L (<=22)
[2025-04-08] MEDS: HUM PROTHROMBIN CPLX LANS IV (22:23)
[2025-04-08] MEDS: VIAFLEX IV (22:23)
--- NOTE | 2025-04-08 22:37 | ED.RN ---
Patients daughter informed patient has left in the helicopter. Daughter states she is fpc there and has no further questions at this time.
== END 2025-04-08 22:33 | disposition other institution (70) ==
PROVIDERS: Emergency Provider Emergency Medicine; Visit Provider Emergency Medicine
DX: I62.9 Nontraumatic intracranial hemorrhage, unspecified (principal); I10 Essential (primary) hypertension; G47.33 Obstructive sleep apnea (adult) (pediatric); Z87.891 Personal history of nicotine dependence; Z79.01 Long term (current) use of anticoagulants; Z86.73 Personal history of transient ischemic attack (TIA), and cerebral infarction without residual deficits
CPT/HCPCS: 70450; 70496; 70498; 80048; 84484; 85025; 85610; 85730; 93005; 96365; 96375; 99285; Q9967; A4216; J2405; J7165